=== PATIENT | female | born 1995 | race Caucasian/White ===

== ENCOUNTER 2018-10-22 15:23 | Emergency (ER) | payer MEDICAID, OTHER ==
[~2018-10-22] VITALS: Ht 154.9 cm; Wt 77.1 kg
[2018-10-22 15:40] VITALS: BP 101/53
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
[2018-10-22 16:35] LABS: APPEARANCE,URINE HAZY (CLEAR); BILIRUBIN,URINE NEGATIVE (NEGATIVE); BLOOD, URINE NEGATIVE (NEGATIVE); COLOR,URINE YELLOW (YELLOW); LEUKOCYTE ESTERASE ,URINE 1+ (NEGATIVE); NITRITE, URINE NEGATIVE (NEGATIVE); UGLUCOSE NEGATIVE (NEGATIVE)
[2018-10-22] MEDS ORDERED: IBUPROFEN 800 MG TAB PO ONE (16:35)
[2018-10-22 16:37] LABS: BASOPHILS % (AUTO) 0.2 % (0.0-2.0); EOSINOPHILS % (AUTO) 0.3 % (0.0-4.0); HEMATOCRIT 35.9 % (36-48); HEMOGLOBIN 12.3 g/dL (12.0-16.0); LYMPHOCYTES # (AUTO) 1.7 K/uL (2.5-16.5); LYMPHOCYTES % (AUTO) 12.9 % (20.5-51.1); MEAN CORPUSCULAR HEMOGLOBIN 31 pg (27-31); MEAN CORPUSCULAR HGB CONC 34 g/dL (33-37); MEAN CORPUSCULAR VOLUME 91.7 fL (80-94); MONOCYTES # (AUTO) 0.7 K/uL (0.8-1.0); MONOCYTES % (AUTO) 5.2 % (1.7-9.3); NEUTROPHILS # (AUTO) 10.6 K/uL (1.8-7.7); NEUTROPHILS % (AUTO) 81.4 % (42.2-75.2); PLATELET COUNT (AUTO) 272 K/uL (140-450); RED BLOOD CELL COUNT(AUTO) 3.91 MIL/uL (4.20-5.40); RED CELL DISTRIBUTION WIDTH 13.3 % (11.6-13.7); WHITE BLOOD COUNT (AUTO) 13.1 K/uL (4.8-10.8)
[2018-10-22 16:46] LABS: RBC,URINE 0 /HPF (0-5)
--- NOTE | 2018-10-22 16:50 | NUR ---
Claudia stallings in [facility] - 10/22/18 at 1707 by ANAT GAVE PATIENT 30 ML APPLE JUICE. PATIENT DRANK IT WITHOUT N/V. WILL CONTINUE TO MONITOR.
[2018-10-22 17:03] LABS: POTASSIUM 3.9 mmol/L (3.5-5.1)
[2018-10-22 17:04] LABS: CARBON DIOXIDE 25.9 mmol/L (21-32); CREATININE 0.4 mg/dL (0.6-1.3)
--- NOTE | 2018-10-22 17:55 | NUR ---
INFORMED DR. SHEPHERD PT DOES NOT WISH TO RECEIVE RHOGAM DUE TO THE FACT THAT SHE WILL NOT BE KEEPING HER , HE WILL SEE PT.
[2018-10-22 18:08] VITALS: BP 105/52
--- NOTE | 2018-10-22 18:08 | NUR ---
Patient discharged with v/s stable. Written and verbal after care instructions given and explained. Patient alert, oriented and verbalized understanding of instructions. Ambulatory with steady gait. All questions addressed prior to discharge. ID band removed. Patient advised to follow up with PMD. Rx of MOTRIN & MACROBID given. Patient educated on indication of medication including possible reaction and side effects. Opportunity to ask questions provided and answered.
== END 2018-10-22 18:08 | disposition home or self-care (01) ==
LOC: MED 15:23
DX: O9A.212 Injury, poisoning and certain other consequences of external causes complicating pregnancy, second trimester (principal); O23.42 Unspecified infection of urinary tract in pregnancy, second trimester; R51 Headache; M54.2 Cervicalgia; V89.2XXA Person injured in unspecified motor-vehicle accident, traffic, initial encounter; Y93.89 Activity, other specified; Y92.411 Interstate highway as the place of occurrence of the external cause; Y99.8 Other external cause status
CPT/HCPCS: 36415; 76801; 80048; 81001; 81025; 84702; 85025; 86886; 86900; 86901; 87086; 99284; Q0092; 87186

== ENCOUNTER 2019-06-08 16:17 | Emergency (ER) | payer MEDICAID ==
[~2019-06-08] VITALS: Ht 154.9 cm; Wt 78.0 kg
[2019-06-08 16:22] VITALS: BP 118/70
[2019-06-08] MEDS ORDERED: HYDROcodone/APAP 5/325 MG 1 TAB TAB PO ONE (17:30)
[2019-06-08 17:50] VITALS: BP 108/57
== END 2019-06-08 17:50 | disposition home or self-care (01) ==
LOC: MED 16:17
DX: S06.891A Other specified intracranial injury with loss of consciousness of 30 minutes or less, initial encounter (principal); W01.0XXA Fall on same level from slipping, tripping and stumbling without subsequent striking against object, initial encounter; Y93.89 Activity, other specified; Y92.89 Other specified places as the place of occurrence of the external cause; Y99.8 Other external cause status
CPT/HCPCS: 70450; 71100; 81002; 81025; 99284

== ENCOUNTER 2023-03-27 18:04 | Emergency (ER) | payer MEDICAID ==
[~2023-03-27] VITALS: Ht 154.9 cm; Wt 63.5 kg
[2023-03-27 18:48] VITALS: BP 118/60; PULSE 109; RESP 19; TEMP 98.2; O2SAT 98
[2023-03-27] MEDS ORDERED: KETOROLAC 30 MG/ML VIAL IM ONE (20:20)
[2023-03-27] MEDS ORDERED: ONDANSETRON 4 MG ODT PO ONE (20:20)
[2023-03-27] MEDS ORDERED: ACETAMINOPHEN EXTRA STRENGTH 500 MG TAB PO ONE (20:20)
[2023-03-27] MEDS ORDERED: NACL 0.9% 1,000 ML IV ONE (21:00)
[2023-03-27 21:11] LABS: BASOPHILS % (AUTO) 0.3 % (0.0-2.0); EOSINOPHILS % (AUTO) 0.1 % (0.0-4.0); HEMATOCRIT 40.7 % (36-48); HEMOGLOBIN 14.6 g/dL (12.0-16.0); LYMPHOCYTES # (AUTO) 1.7 K/uL (2.5-16.5); LYMPHOCYTES % (AUTO) 17.2 % (20.5-51.1); MEAN CORPUSCULAR HEMOGLOBIN 31 pg (27-31); MEAN CORPUSCULAR HGB CONC 36 g/dL (33-37); MEAN CORPUSCULAR VOLUME 87.4 fL (80-94); MONOCYTES # (AUTO) 0.7 K/uL (0.8-1.0); MONOCYTES % (AUTO) 7.4 % (1.7-9.3); NEUTROPHILS # (AUTO) 7.4 K/uL (1.8-7.7); PLATELET COUNT (AUTO) 282 K/uL (140-450); RED BLOOD CELL COUNT(AUTO) 4.66 MIL/uL (4.20-5.40); RED CELL DISTRIBUTION WIDTH 12.6 % (11.6-13.7); WHITE BLOOD COUNT (AUTO) 9.8 K/uL (4.8-10.8)
[2023-03-27 21:29] LABS: ALBUMIN 3.7 g/dL (3.4-5.0); ANION GAP 10.1 (8-16); CARBON DIOXIDE 31.7 mmol/L (21-32); CREATININE 0.6 mg/dL (0.6-1.3); POTASSIUM 3.8 mmol/L (3.5-5.1); TOTAL BILIRUBIN 0.2 mg/dL (0.0-1.0); TOTAL PROTEIN, SERUM 8.4 g/dL (6.4-8.2)
[2023-03-27 21:30] VITALS: O2SAT 98
[2023-03-27] MEDS ORDERED: IBUP-2213 PO (21:52)
[2023-03-27] MEDS ORDERED: ONDA-188 PO (21:52)
[2023-03-27 21:55] LABS: FLU A ANTIGEN negative (NEGATIVE); FLU B ANTIGEN NEGATIVE (NEGATIVE)
[2023-03-27 22:49] LABS: AMPHETAMINE, URINE NEGATIVE ng/ml (NEG <=1000); BARBITURATE, URINE NEGATIVE ng/ml (NEG <=200); BENZODIAZEPINE, URINE NEGATIVE ng/mL (NEG <=200); CANNABINOID, URINE POSITIVE ng/mL (NEG <=50); COCAINE, URINE NEGATIVE ng/mL (NEG <=300); OPIATE, URINE NEGATIVE ng/mL (NEG <=2000); PHENCYCLIDINE SCREEN,URINE NEGATIVE ng/mL (NEG <=25)
[2023-03-27 23:00] LABS: BILIRUBIN,URINE NEGATIVE (NEGATIVE); BLOOD, URINE NEGATIVE (NEGATIVE); COLOR,URINE YELLOW (YELLOW); LEUKOCYTE ESTERASE ,URINE NEGATIVE (NEGATIVE); NITRITE, URINE NEGATIVE (NEGATIVE); PH,URINE 8.5 (5.0-9.0); PROTEIN,URINE NEGATIVE (NEGATIVE); UGLUCOSE NEGATIVE (NEGATIVE); UROBILINOGEN,URINE 0.2 EU/dL (0.2 - 1)
[2023-03-27 23:02] LABS: APPEARANCE,URINE SLIGHTLY HAZY (CLEAR)
[2023-03-27 23:04] LABS: BACTERIA,URINE OCCASSIONAL /HPF (None Seen); RBC,URINE NONE SEEN /HPF (0-5)
[2023-03-29] MEDS ORDERED: NITR100C7 PO (13:20)
== END 2023-03-27 22:14 | disposition home or self-care (01) ==
LOC: MED 18:04
DX: N39.0 Urinary tract infection, site not specified (principal); R11.2 Nausea with vomiting, unspecified; M54.50 Low back pain, unspecified; Z20.822 Contact with and (suspected) exposure to COVID-19; Z79.899 Other long term (current) drug therapy; Z79.2 Long term (current) use of antibiotics; Z79.1 Long term (current) use of non-steroidal anti-inflammatories (NSAID)
CPT/HCPCS: 36415; 80053; 80305; 81001; 81025; 83690; 85025; 87086; 87426; 87804; 96360; 96372; 99283; J1885; J7030; Q0162